=== PATIENT | female | born 1945 | race Caucasian/White ===

== ENCOUNTER → 2017-02-14 | Outpatient (CLI) | payer MEDICARE, BC ==
[~2017-02-14] MED LIST: ASPIRIN 81M81 MG/TA2 PO; CALCIUM 600600 M2 PO; NORCO 325 MG-51 TAB PO; OMEGA-31000 MG PO; TYLENOL PM EXTR1 CAP PO; VOLTAREN50 MG PO
== END ==
LOC: MC.RAD 08:37
DX: Z12.31 Encounter for screening mammogram for malignant neoplasm of breast (principal)

== ENCOUNTER → 2018-02-25 | Outpatient (CLI) | payer MEDICARE, BC | LOC: MC.RAD 07:18 | DX: Z12.31 Encounter for screening mammogram for malignant neoplasm of breast (principal); Z98.890 Other specified postprocedural states ==

== ENCOUNTER → 2018-03-10 | Outpatient (CLI) | payer MEDICARE, BC | LOC: MHCPAIN 14:04 | DX: G89.29 Other chronic pain (principal); M54.14 Radiculopathy, thoracic region; M47.814 Spondylosis without myelopathy or radiculopathy, thoracic region; M41.9 Scoliosis, unspecified | CPT/HCPCS: G0463 ==

== ENCOUNTER → 2018-03-27 | Outpatient (CLI) | payer MEDICARE, BC | LOC: MHCPAIN 08:08 | DX: M47.22 Other spondylosis with radiculopathy, cervical region (principal); M46.96 Unspecified inflammatory spondylopathy, lumbar region; M41.9 Scoliosis, unspecified | CPT/HCPCS: J1100; Q9967 ==

== ENCOUNTER → 2018-04-09 | Outpatient (CLI) | payer MEDICARE, BC | LOC: MHCPAIN 08:08 | DX: G89.29 Other chronic pain (principal); M54.14 Radiculopathy, thoracic region; M54.6 Pain in thoracic spine; M41.9 Scoliosis, unspecified | CPT/HCPCS: G0463 ==

== ENCOUNTER → 2018-09-09 | Outpatient (CLI) | payer MEDICARE, BC | LOC: MHCPAIN 13:40 | DX: G89.29 Other chronic pain (principal); M47.817 Spondylosis without myelopathy or radiculopathy, lumbosacral region; M47.814 Spondylosis without myelopathy or radiculopathy, thoracic region | CPT/HCPCS: G0463 ==

== ENCOUNTER → 2018-09-18 | Outpatient (CLI) | payer MEDICARE, BC | LOC: MHCPAIN 08:38 | DX: M47.814 Spondylosis without myelopathy or radiculopathy, thoracic region (principal); M54.16 Radiculopathy, lumbar region ==

== ENCOUNTER → 2018-09-24 | Outpatient (CLI) | payer MEDICARE, BC | LOC: MHCPAIN 07:57 | DX: G89.29 Other chronic pain (principal); M47.817 Spondylosis without myelopathy or radiculopathy, lumbosacral region; M47.814 Spondylosis without myelopathy or radiculopathy, thoracic region; M41.9 Scoliosis, unspecified | CPT/HCPCS: G0463 ==

== ENCOUNTER → 2018-10-13 | Outpatient (CLI) | payer MEDICARE, BC | LOC: MHCPAIN 11:22 | DX: M47.814 Spondylosis without myelopathy or radiculopathy, thoracic region (principal); M54.14 Radiculopathy, thoracic region | CPT/HCPCS: J1100; Q9967 ==

== ENCOUNTER → 2018-10-28 | Outpatient (CLI) | payer MEDICARE, BC | LOC: MHCPAIN 10:51 | DX: G89.29 Other chronic pain (principal); M54.6 Pain in thoracic spine; M54.14 Radiculopathy, thoracic region; M47.814 Spondylosis without myelopathy or radiculopathy, thoracic region; M41.9 Scoliosis, unspecified | CPT/HCPCS: G0463 ==

== ENCOUNTER → 2019-02-20 | Outpatient (CLI) | payer MEDICARE, BC ==
[2019-02-20 12:50] LABS: AMYLASE 126 U/L (30-110); LIPASE 100 U/L (23-300)
== END ==
LOC: COL.RAD 11:10
PROVIDERS: Psychiatry & Neurology Neurology
DX: M54.9 Dorsalgia, unspecified (principal); R10.9 Unspecified abdominal pain
CPT/HCPCS: Q9967

== ENCOUNTER → 2019-02-26 | Outpatient (CLI) | payer MEDICARE, BC | LOC: MC.RAD 07:35 | DX: Z12.31 Encounter for screening mammogram for malignant neoplasm of breast (principal); N63.21 Unspecified lump in the left breast, upper outer quadrant; Z98.82 Breast implant status ==

== ENCOUNTER → 2020-06-27 | Outpatient (CLI) | payer MEDICARE, BC | LOC: MC.RAD 07:42 | DX: Z12.31 Encounter for screening mammogram for malignant neoplasm of breast (principal) ==

== ENCOUNTER 2021-07-12 14:00 | Outpatient (RCR) | payer MEDICARE, BC | END 2021-08-15 | disposition still patient (30) | LOC: MKS.ESL.PT | DX: M47.24 Other spondylosis with radiculopathy, thoracic region (principal); M41.86 Other forms of scoliosis, lumbar region; R26.89 Other abnormalities of gait and mobility ==

== ENCOUNTER → 2022-02-14 | Outpatient (CLI) | payer MEDICARE, BC | LOC: COL.RAD 08:37 | DX: M25.551 Pain in right hip (principal) | CPT/HCPCS: J3301; Q9967 ==

== ENCOUNTER 2022-05-07 10:21 | Outpatient (RCR) | payer MEDICARE, BC | END 2022-05-17 | disposition home or self-care (01) | LOC: MKS.ESL.PT | DX: M25.551 Pain in right hip (principal) ==

== ENCOUNTER 2022-06-13 08:45 | Outpatient (RCR) | payer MEDICARE, BC | END 2022-06-17 | disposition home or self-care (01) | LOC: MKS.ESL.PT | DX: M16.11 Unilateral primary osteoarthritis, right hip (principal) ==

== ENCOUNTER 2022-06-20 08:11 | Outpatient (RCR) | payer MEDICARE, BC | END 2022-07-18 | disposition home or self-care (01) | LOC: MKS.ESL.PT | DX: M25.551 Pain in right hip (principal) ==

== ENCOUNTER 2023-01-15 15:02 | Outpatient (RCR) | payer MEDICARE, BC | END 2023-01-15 15:03 | LOC: MKS.ESL.PT 15:02 | DX: M16.11 Unilateral primary osteoarthritis, right hip (principal) ==

== ENCOUNTER 2023-07-12 09:00 | Outpatient (RCR) | payer MEDICARE, BC ==
[~2023-07-12 09:00] MED LIST changes: +ASPIRIN 32325 MG/TAB PO; +DURICEF 500MG500 MG PO; +LYRICA 150MG C150 MG PO; +ZOFRAN 4MG T4 MG/TAB PO
== END 2023-07-18 | disposition home or self-care (01) ==
LOC: MKS.ESL.PT
DX: Z47.1 Aftercare following joint replacement surgery (principal); M16.12 Unilateral primary osteoarthritis, left hip

== ENCOUNTER 2023-08-07 14:15 | Outpatient (RCR) | payer MEDICARE, BC | END 2023-08-17 | disposition home or self-care (01) | LOC: MKS.ESL.PT | DX: M16.12 Unilateral primary osteoarthritis, left hip (principal); Z47.1 Aftercare following joint replacement surgery; Z96.642 Presence of left artificial hip joint ==